=== PATIENT | female | born 1945 | race Caucasian/White ===

== ENCOUNTER 2024-01-26 17:40 | Emergency (ER) | payer MEDICARE, SELFPAY ==
[2024-01-26 17:42] VITALS: BP 181/107; PULSE 86; RESP 20; TEMP 36.3; O2SAT 100
--- NOTE | 2024-01-26 17:58 | EKG12_ITS ---
Test Reason : DYSRHYTHMIA Blood Pressure : / mmHG Vent. Rate : 083 BPM Atrial Rate : 083 BPM P-R Int : 144 ms QRS Dur : 082 ms QT Int : 386 ms P-R-T Axes : 080 -05 034 degrees QTc Int : 453 ms Sinus rhythm with occasional Premature ventricular complexes Otherwise normal ECG Confirmed by VICTORINO CARRERO, VALDEZ ([id number]), editor news CUCA SCHERER ([id number]) on 01/30/2024 9:18:25 AM Referred By: CARY Confirmed By:CURTIS GLEASON MD
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
[2024-01-26 18:03] VITALS: BMI 32.4
[2024-01-26 18:11] VITALS: BP 149/83; PULSE 87; RESP 16; O2SAT 92
[2024-01-26] MEDS: MethylPREDNISolone 125 MG/2 ML Vial IV (18:28)
[2024-01-26] MEDS: DiphenhydrAMINE 50 MG/ML Syringe 25 MG IV (18:28)
[2024-01-26] MEDS: 0.9% Normal Saline (1000mL) 1,000 ML 150 ML IV (18:28)
[2024-01-26 18:30] VITALS: BP 153/103; PULSE 86; RESP 21
[2024-01-26 18:35] LABS: Absolute Lymphocyte Count 1.89 X10^3/uL (0.83-4.51); Absolute Neutrophil Count 4.9 X10^3/uL (2.0-7.7); Basophil# 0.03 X10^3/uL; Basophil% 0.4 % (0-1); Eosinophil# 0.08 X10^3/uL; Eosinophils% 1.1 % (0-5); Hematocrit 38.8 % (37-47); Hemoglobin 12.4 g/dL (12.0-15.0); Lymphocyte # 1.89 X10^3/ul (0.83-4.51); Lymphocyte % 25.4 % (19-41); Mean Corpuscular Hgb 27.7 pg (27.0-32.0); Mean Corpuscular Volume 86.8 fL (81-99); Mean Platelet Vol. 9.3 fl (6.2-12.0); Monocyte# 0.49 X10^3/uL; Monocyte% 6.6 % (0-10); NRBC Flagged by Analyzer 0 % (0-5); Neutrophil % 65.8 % (47-70); Platelet Count 231 K/mm3 (150-450); RBC Distribution Width CV 15.2 % (11.6-14.6); RBC Distribution Width SD 48.4 fl (35.1-43.9); Red Blood Count 4.47 M/mm3 (4.2-5.4); White Blood Count 7.4 K/mm3 (4.4-11.0)
[2024-01-26 19:00] LABS: ALB/GLOB Ratio 0.9 RATIO (0.9-2.4); AST(SGOT) 52 U/L (15-37); Alanine Aminotransfer ALT/SGPT 36 U/L (13-56); Albumin, Serum 3.7 g/dL (3.2-5.0); Alkaline Phosphatase 127 U/L (45-117); Anion Gap 7 (5-15); BUN 19 mg/dL (7-18); BUN/Creat Ratio 24.7 RATIO (10-20); Calcium,Total 9.4 mg/dL (8.5-10.1); Chloride 109 mmol/L (98-107); Creatinine, Serum 0.77 mg/dL (0.55-1.02); EST Glomerular Filtration Rate 77 mL/min (>60); Est Glom Filt Rate - Afr Amer 94 mL/min (>60); Estimated Creatinine Clearance 64.71 ml/min; Globulin 3.9 g/dL (2.2-4.2); Glucose 95 mg/dL (74-106); Potassium 3.4 mmol/L (3.5-5.1); Protein, Total 7.6 g/dL (6.4-8.2); Sodium Level 141 mmol/L (136-145); Troponin-I HS 10 pg/mL (3.0-54.0)
--- NOTE | 2024-01-26 20:42 | ED.RN ---
Pt requesting d/c, asking for iv out. Removed all her telemetry and vitals monitoring. This RN informed pt that he ct results aren't back. Pt states the can just call me with that. This RN informed pt that isn't how things work but she's welcome to go if she would rather not wait. Pt ok with waiting for now. Declined vitals assessment.
== END 2024-01-26 21:03 | disposition home or self-care (01) ==
PROVIDERS: Emergency Provider Emergency Medicine; Visit Provider Emergency Medicine
DX: S20.20XA Contusion of thorax, unspecified, initial encounter (principal); S22.089A Unspecified fracture of T11-T12 vertebra, initial encounter for closed fracture; V49.40XA Driver injured in collision with unspecified motor vehicles in traffic accident, initial encounter; W22.10XA Striking against or struck by unspecified automobile airbag, initial encounter; T14.8XXA Other injury of unspecified body region, initial encounter
CPT/HCPCS: 70450; 71260; 72125; 74177; 80053; 84484; 85025; 93005; 96361; 96374; 96375; 99284; J7030; Q9967; A4216